=== PATIENT | female | born 1960 | race Two or more races ===

== ENCOUNTER 2020-12-17 10:30 | Inpatient (IN) | payer OTHER ==
[~2020-12-17] VITALS: Ht 149.9 cm; Wt 74.8 kg
[2020-12-17] MEDS ORDERED: ZESTRIL5 MG PO (12:49)
[2020-12-17] MEDS ORDERED: OMEPRAZ PO (12:50)
[2020-12-17] MEDS ORDERED: CHOLESTYRAMINE R5 GM PO (12:50)
[2020-12-21] MEDS ORDERED: CHOLESTYRAMINE R5 GM PO (07:57)
[2020-12-24] MEDS ORDERED: HYOSCYAMINE0.125 M1 SL (09:42)
[2020-12-24] MEDS ORDERED: ULTRACET PO (09:42)
[2020-12-24] MEDS ORDERED: INTESTINEX680 M1 PO (09:43)
== END 2020-12-24 15:09 | disposition home or self-care (01) | DRG 331 ==
LOC: SURH 12-20 05:30 → O/R 12-20 11:04 → SURH 12-20 18:05
PROVIDERS: ADMIT Surgery; ATTEND Surgery
PROC: 07BC4ZX Excision of Pelvis Lymphatic, Percutaneous Endoscopic Approach, Diagnostic (ICD-10-PCS; 2020-12-20)
PROC: 0DTF4ZZ Resection of Right Large Intestine, Percutaneous Endoscopic Approach (ICD-10-PCS; principal; 2020-12-20 05:30)
DX: C18.2 Malignant neoplasm of ascending colon (principal); D50.0 Iron deficiency anemia secondary to blood loss (chronic)

== ENCOUNTER 2023-04-02 05:00 | Day surgery (SDC) | payer OTHER ==
[2023-03-13 11:47] LABS: HEMATOCRIT 31.6 % (36.0-45.00); HEMOGLOBIN 10.1 g/dL (12.0-15.00); MEAN CELL VOLUME 65.4 fL (80.00-100.00); MEAN CORPUSCULAR HEMOGLOBIN 20.9 pg (27.00-32.0); MEAN CORPUSCULAR HGB CONC 31.9 g/dl (32.0-36.0); PLATELET COUNT 406 K/uL (150-450); RED BLOOD COUNT 4.83 M/uL (4.00-6.00); RED CELL DISTRIBUTION WIDTH 17.3 % (11.5-14.5)
[2023-03-13 11:53] LABS: PH,URINE 5.5 (5.0-8.0); URINE APPEARANCE Clear; URINE BILIRRUBIN Negative (NEGATIVE); URINE BLOOD Trace; URINE COLOR Yellow; URINE GLUCOSE Negative (NEGATIVE); URINE LEUKOCYTE Negative; URINE NITRATE Negative; URINE PROTEIN Negative (NEGATIVE); URINE UROBILINOGEN 0.2 E.U./dl
[2023-03-13 11:54] LABS: URINE BACTERIA 55.4 uL (0.0-1933); URINE EPITHELIAL CELLS 6.6 uL (0.0-38.8); URINE RBC 6.3 uL (0.0-20.8)
[2023-03-13 12:14] LABS: ALBUMIN 3.5 gm/dL (3.4-5.0); BILIRUBIN TOTAL 0.37 mg/dL (0.3-1.2); CALCIUM 9.9 mg/dL (8.5-10.1); CREATININE SERUM 0.69 mg/dL (0.55-1.02); GFR 86.21; POTASSIUM 4.29 mEq/L (3.5-5.1); TOTAL PROTEIN 7.5 gm/dL (6.4-8.2)
[2023-03-13 12:15] LABS: INR 0.98; PARTIAL THROMBOPLASTIN TIME 30.1 SECONDS (22.0-34.0); PROTHROMBIN TIME 10.3 SECONDS (9.0-11.5)
[~2023-04-02 05:00] MED LIST: CHOLESTYRAMINE R5 GM PO; COZAAR50 MG PO; HYOSCYAMINE0.125 M1 SL; INTESTINEX680 M1 PO; OMEPRAZ PO; PEPCID AC10 MG PO; ULTRACET PO; ZESTRIL5 MG PO
[2023-04-02] MEDS ORDERED: PERCOCET 5-3251 EACH PO (08:41)
[2023-04-02] MEDS ORDERED: RECTICARE30 GM TOP (08:42)
== END 2023-04-02 13:35 | disposition home or self-care (01) ==
LOC: CIR.AMB 05:00
PROVIDERS: ATTEND Surgery
DX: K64.8 Other hemorrhoids (principal); K64.4 Residual hemorrhoidal skin tags